=== PATIENT | male | born 1965 | race Caucasian/White ===

== ENCOUNTER 2020-07-12 23:32 | Emergency (ER) | payer MEDICAID, OTHER ==
[2020-07-12] MEDS ORDERED: NS IV 1000 ML 1,000 ML IV STA (23:36)
--- NOTE | 2020-07-12 23:40 | ED Fall/Injury ---
General Stated Complaint: FALL Source: patient, RN/MD, EMS, RN notes reviewed, EMS notes reviewed, old records History of Present Illness Date Seen by Provider: Jul 12, 2020 Time Seen by Provider: 23:30 Initial Comments This patient is a 55-year-old male that presents to the emergency department with complaint of a fall. Patient states he has a history of orthostatic hypotension causing the fall. Patient struck the right side of his head and has a laceration present. Bleeding is controlled at this time. Patient denies loss of consciousness police interviewed get his gregory rung. We'll do medical evaluation treatment is needed. Blood pressure on arrival was 118/73. Patient admits to drinking alcohol. Occurred: just prior to arrival Injuries/Pain Location: head Context: lightheaded Loss of Consciousness: brief (seconds) Associated Symptoms (Fall): Lightheadedness Allergies and Home Medications Allergies Coded Allergies: No Known Drug Allergies (Unverified , 07/12/20) Patient Home Medication List Home Medication List Reviewed: Yes Review of Systems Review of Systems Constitutional: No no symptoms reported; see HPI; No chills, No diaphoresis, No dizziness, No fever, No malaise, No weakness, No weight gain, No weight loss, No other Eyes: Denies No Symptoms Reported, Denies See HPI, Denies Blindness, Denies Blurred Vision, Denies Drainage, Denies Decreased Acuity, Denies Foreign Body Sensation, Denies Inflammation, Denies Pain, Denies Photophobia, Denies Previous Injury, Denies Shadows, Denies Tunnel Vision, Denies Vision Changes, Denies Contact Lenses, Denies Glasses, Denies Other Ears, Nose, Mouth, Throat: denies no symptoms reported, denies see HPI, denies ear pain, denies ear discharge, denies nose pain, denies nose discharge, denies epistaxis, denies mouth pain, denies mouth swelling, denies loose teeth, denies throat pain, denies throat swelling Respiratory: No no symptoms reported, No see HPI, No cough, No dyspnea on exertion, No hemoptysis, No orthopnea, No phlegm, No short of breath, No stridor, No wheezing, No other Cardiovascular: No no symptoms reported, No see HPI, No chest pain, No edema, No Hx of Intervention, No palpitations, No syncope, No vascular heart diseas, No other Gastrointestinal: No RUQ, No LUQ, No RLQ, No LLQ, No no symptoms reported, No see HPI, No abdominal pain, No constipation, No diarrhea, No dysphagia, No hematemesis, No heartburn, No jaundice, No loss of appetite, No melena, No nausea, No vomiting, No other Musculoskeletal: No no symptoms reported, No see HPI, No back pain, No gout, No joint pain, No joint swelling, No muscle pain, No muscle stiffness, No muscle cramps, No muscle twitching, No muscle weakness, No neck pain, No other Skin: see HPI, other (scalp laceration on the right parietal) All Other Systems Reviewed Negative Unless Noted: Yes Past Spagrvl-Tnjibb-Qgrevi Hx Patient Social History Recent Foreign Travel: No Contact w/Someone Who Travel: No Physical Exam Vital Signs Vital Signs - First Documented 07/12/20 23:32 Pulse 80 Resp 18 B/P (MAP) 118/73 (88) Pulse Ox 95 O2 Delivery Room Air Capillary Refill : Height, Weight, BMI Height: '" Weight: lbs. oz. kg; BMI Method: General Appearance: WD/WN, no apparent distress, other (scalp laceration to the right parietal area) HEENT: PERRL/EOMI, normal ENT inspection, TMs normal, pharynx normal Neck: non-tender, full range of motion, supple, normal inspection Cardiovascular: normal peripheral pulses, regular rate, rhythm, no edema, no gallop, no JVD, no murmur Respiratory: chest non-tender, lungs clear, normal breath sounds, no respiratory distress, no accessory muscle use Gastrointestinal: normal bowel sounds, non tender, soft, no organomegaly, no pulsatile mass Extremities: normal range of motion, non-tender, normal inspection, no pedal edema, no calf tenderness, normal capillary refill, pelvis stable Neurologic/Psychiatric: 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, no motor/sensory deficits, alert, normal mood/affect, oriented x 3 Skin: normal color, warm/dry, other (scalp laceration to the right parietal area) Zaid Coma Score Best Eye Response: (4) Open Spontaneously Best Verbal Response: (5) Oriented Best Motor Response: (6) Obeys Commands Zaid Total: 15 Procedures/Interventions Wound Location: Scalp Other Wound Location Right parietal area Wound's Depth, Shape: irregular, contused tissue Wound Explored: clean Irrigated w/ Saline (ccs): 250 Wound Debrided: minimal (debridement of scalp hair) Staple Repair: Stapler 35W Progress Laceration repaired with cash. Laceration was a flap in a V-type shape the right parietal area. Did debridement the area with al to remove hair to get approximate edges. 11 cash placed. Minimal blood loss patient tolerated well Progress/Results/Core Measures Results/Orders Lab Results Laboratory Tests Test 07/12/20 23:55 Range/Units White Blood Count 13.5 H 4.3-11.0 10^3/uL Red Blood Count 3.91 L 4.35-5.85 10^6/uL Hemoglobin 14.4 13.3-17.7 G/DL Hematocrit 39 L 40-54 % Mean Corpuscular Volume 101 H 80-99 FL Mean Corpuscular Hemoglobin 37 H 25-34 PG Mean Corpuscular Hemoglobin Concent 37 H 32-36 G/DL Red Cell Distribution Width 12.1 10.0-14.5 % Platelet Count 248 130-400 10^3/uL Mean Platelet Volume 9.7 7.4-10.4 FL Immature Granulocyte % (Auto) 1 % Neutrophils (%) (Auto) 71 42-75 % Lymphocytes (%) (Auto) 16 12-44 % Monocytes (%) (Auto) 9 0-12 % Eosinophils (%) (Auto) 3 0-10 % Basophils (%) (Auto) 1 0-10 % Neutrophils # (Auto) 9.6 H 1.8-7.8 X 10^3 Lymphocytes # (Auto) 2.1 1.0-4.0 X 10^3 Monocytes # (Auto) 1.2 H 0.0-1.0 X 10^3 Eosinophils # (Auto) 0.5 H 0.0-0.3 10^3/uL Basophils # (Auto) 0.1 0.0-0.1 10^3/uL Immature Granulocyte # (Auto) 0.1 0.0-0.1 10^3/uL Prothrombin Time 13.1 12.2-14.7 SEC INR Comment 1.0 0.8-1.4 Sodium Level 126 L 135-145 MMOL/L Potassium Level 4.0 3.6-5.0 MMOL/L Chloride Level 96 L 98-107 MMOL/L Carbon Dioxide Level 17 L 21-32 MMOL/L Anion Gap 13 5-14 MMOL/L Blood Urea Nitrogen 6 L 7-18 MG/DL Creatinine 0.67 0.60-1.30 MG/DL Estimat Glomerular Filtration Rate > 60 BUN/Creatinine Ratio 9 Glucose Level 93 70-105 MG/DL Calcium Level 7.7 L 8.5-10.1 MG/DL Corrected Calcium 8.0 L 8.5-10.1 MG/DL Total Bilirubin 0.3 0.1-1.0 MG/DL Aspartate Amino Transf (AST/SGOT) 22 5-34 U/L Alanine Aminotransferase (ALT/SGPT) 23 0-55 U/L Alkaline Phosphatase 61 40-136 U/L Troponin I < 0.30 <0.30 NG/ML Pro-B-Type Natriuretic Peptide 37.7 <75.0 PG/ML Total Protein 5.6 L 6.4-8.2 GM/DL Albumin 3.6 3.2-4.5 GM/DL My Orders Orders - BENITA MCNEIL MD Cbc With Automated Diff (07/12/20 23:34) Comprehensive Metabolic Panel (07/12/20 23:34) Orthostatic Vital Signs (Adult (07/12/20 23:34) Ekg Tracing (07/12/20 23:34) Troponin I Fs (07/12/20 23:34) Probnp Fs (07/12/20 23:34) Protime With Inr (07/12/20 23:34) Ct Cervical Spine Wo (07/12/20 23:35) Ns Iv 1000 Ml (Sodium Chloride 0.9%) (07/12/20 23:36) Dipht,Pertuss(Acell),Tet Adult (Boostrix (07/12/20 23:45) Ct Head/Cervical Spine Wo (07/12/20 23:34) Ed Iv/Invasive Line Start (07/13/20 00:12) Chest 1 View Ap/Pa Only (07/13/20 23:34) Medications Given in ED Current Medications Medications Dose Ordered Sig/Jake Route Start Time Stop Time Status Last Admin Dose Admin Diphtheria/ Tetanus/Acell Pertussis 0.5 ml ONCE ONCE IM 07/12/20 23:45 07/12/20 23:46 DC 07/13/20 00:43 0.5 ML Vital Signs/I&O 07/12/20 07/13/20 23:32 01:13 Pulse 80 94 96 103 Resp 18 B/P (MAP) 118/73 (88) 124/67 (86) 122/68 (86) 123/65 (84) Pulse Ox 95 O2 Delivery Room Air 07/13/20 00:00 Intake Total 1000 ml Balance 1000 ml Progress Progress Note : Time: 01:[address] of the head and scalp contusion. Negative CT of the C-spine for any acute findings. Did discuss length with patient about his fall. Patient admits to he's been drinking heavily alcohol tonight and he does smell of alcohol. Patient is awake alert and doesn't appear overly intoxicated at this time patient has good urine output awake and alert, no deficits. Patient be discharged home patient's cash to be removed in 5 days. Initial ECG Impression Date: Jul 13, 2020 Initial ECG Impression Time: 23:55 Initial ECG Rate: 89 Initial ECG Rhythm: Normal Sinus Initial ECG Intervals: Normal Initial ECG Impression: Normal, Nonspecific Changes Comment sinus rhythm with a heart rate of [address] changes prolonged QT interval. Departure Impression Primary Impression: Fall Additional Impressions: Alcohol intoxication Scalp laceration Disposition: 01 HOME, SELF-CARE Condition: Stable Departure-Patient Inst. Decision time for Depature: 01:16 Referrals: SELFJOSSELIN MD (PCP/Family) Primary Care Physician Patient Instructions: Laceration Repair With Cash (DC), Minor Head Injury (DC) Add. Discharge Instructions: Keep scalp wound clean and dry and slightly covered. Cash to be removed in 5 days. Avoid drinking excessive amounts of alcohol. Follow-up with PCP in 2-3 day s Scripts Diclofenac Sodium (Diclofenac Sodium) 75 Mg Tablet. 75 MG PO BID for 10 Days, #20 TAB 0 Refills Prov: BENITA MCNEIL MD 07/13/20 BENITA MCNEIL MD Jul 12, 2020 23:40
[2020-07-12] MEDS ORDERED: TETANUS,DIPTH,PERTUSS P/F (BOOSTRIX) 0.5 ML VIAL IM ONE (23:45)
[2020-07-13 00:04] LABS: BASOPHILS % (AUTO) 1 % (0-10); EOSINOPHILS % (AUTO) 3 % (0-10); HEMATOCRIT 39 % (40-54); HEMOGLOBIN 14.4 G/DL (13.3-17.7); LYMPHOCYTES # (AUTO) 2.1 X 10^3 (1.0-4.0); LYMPHOCYTES % (AUTO) 16 % (12-44); MEAN CORPUSCULAR HEMOGLOBIN 37 PG (25-34); MEAN CORPUSCULAR HGB CONC 37 G/DL (32-36); MEAN CORPUSCULAR VOLUME 101 FL (80-99); MEAN PLATELET VOLUME 9.7 FL (7.4-10.4); MONOCYTES % (AUTO) 9 % (0-12); NEUTROPHILS # (AUTO) 9.6 X 10^3 (1.8-7.8); NEUTROPHILS % (AUTO) 71 % (42-75); PLATELET COUNT 248 10^3/uL (130-400); WHITE BLOOD COUNT 13.5 10^3/uL (4.3-11.0)
[2020-07-13 00:05] LABS: BASOPHILS # (AUTO) 0.1 10^3/uL (0.0-0.1); EOSINOPHILS # (AUTO) 0.5 10^3/uL (0.0-0.3); MONOCYTES # (AUTO) 1.2 X 10^3 (0.0-1.0)
[2020-07-13 00:13] LABS: PROTHROMBIN TIME PATIENT 13.1 SEC (12.2-14.7)
[2020-07-13 00:22] LABS: BUN/CREATININE RATIO 9; CARBON DIOXIDE 17 MMOL/L (21-32); CHLORIDE 96 MMOL/L (98-107); CREATININE SERUM 0.67 MG/DL (0.60-1.30); GFR ESTIMATED > 60; GLUCOSE 93 MG/DL (70-105); SODIUM 126 MMOL/L (135-145)
[2020-07-13 00:23] LABS: ALANINE AMINOTRANSFERASE 23 U/L (0-55); ALBUMIN 3.6 GM/DL (3.2-4.5); ALKALINE PHOSPHATASE 61 U/L (40-136); BILIRUBIN,TOTAL 0.3 MG/DL (0.1-1.0); CALCIUM 7.7 MG/DL (8.5-10.1); TOTAL PROTEIN 5.6 GM/DL (6.4-8.2)
[2020-07-13 01:13] VITALS: BP_SYST 122; BP_SYST 123; BP_SYST 124; BP_DIAS 65; BP_DIAS 67; BP_DIAS 68
[2020-07-13 01:17] VITALS: BP 132/66
[2020-07-13] MEDS ORDERED: DICL75TA2 PO (01:17)
--- NOTE | 2020-07-13 07:06 | Diagnostic Imaging Report ---
INDICATION: fall. TECHNIQUE: Single view chest 12:33 AM. CORRELATION STUDY: None FINDINGS: Heart size and mediastinum within normal limits. Coronary artery stent over the left superior heart border. Lungs are somewhat hyperinflated with prominent interstitial markings. Scattered areas of likely fibrosis, particularly in the perihilar and upper lobes distributions. No infiltrate. IMPRESSION: 1. Negative for acute abnormality of the chest. Findings likely reflecting COPD with hyperinflated lung walker and likely areas of fibrosis. No infiltrate. Dictated by: Dictated on workstation # [id number]
--- NOTE | 2020-07-13 07:16 | Diagnostic Imaging Report ---
PROCEDURE: CT head and CT cervical spine without contrast. TECHNIQUE: Multiple contiguous axial images were obtained through the brain and cervical spine without the use of intravenous contrast. Sagittal and coronal reformations through the cervical spine were then performed. Auto Exposure Controls were utilized during the CT exam to meet ALARA standards for radiation dose reduction. INDICATION: Fall striking the head, now with head and neck pain. Head: Scalp injury in the right parietal convexity noted with soft tissue stapling. Underlying calvarium appeared intact and there is no intracerebral hemorrhage. No hemo-sinus. No focal or generalized cerebral edema. No abnormal extra-axial collection. The ventricular system nondilated and nondisplaced. The basilar cisterns are patent. Cervical spine: Cervical body heights normal. The alignment anatomic. There is severe degenerative changes to the discs, endplates and facets throughout the cervical spine, however, no cervical fracture or paravertebral hemorrhage. The central skull base appeared intact. At C2-C3, multifactorial degenerative changes result in moderate to severe central canal stenosis with moderate left and severe right foraminal stenosis. At C3-C4, there is severe canal stenosis with a moderate to severe bi-foraminal narrowing. At C4-C5, there is mild to moderate canal stenosis with moderate left and mild right foraminal narrowing. At C5-6, there is severe canal and severe right foraminal stenosis. At C6-C7, there is severe canal and severe bi-foraminal stenosis. IMPRESSION: Head: Scalp injury but no calvarial fracture deformity or intracranial hemorrhage seen Cervical spine: No fracture or traumatic malalignment, however, there are chronic hypertrophic degenerative changes resulting in substantial degrees of multilevel spinal canal and neural foraminal stenosis. Dictated by: Dictated on workstation # [id number]
== END 2020-07-13 01:26 | disposition home or self-care (01) ==
LOC: ER FS 23:37
DX: S01.01XA Laceration without foreign body of scalp, initial encounter (principal); F10.129 Alcohol abuse with intoxication, unspecified; R40.2410 Glasgow coma scale score 13-15, unspecified time; W19.XXXA Unspecified fall, initial encounter; W22.8XXA Striking against or struck by other objects, initial encounter
CPT/HCPCS: 12015; 36415; 70450; 71045; 72125; 80053; 83880; 84484; 85025; 85610; 90715; 93005